=== PATIENT | male | born 1940 | race Caucasian/White ===

== ENCOUNTER → 2017-02-07 | Outpatient (CLI) | payer MEDICARE ==
[~2017-02-07] MED LIST: ATENOLOL25 M1 PO; LISINOPRIL20 MG PO; OMEPRAZOLE40 MG PO; SIMVASTATIN40 MG PO
--- NOTE | 2017-02-07 11:46 | RADIOLOGY REPORT PS360 ---
[id number] VIEWS HISTORY: LEFT SHOULDER PAIN ORDERING PHYSICIAN: JAYCE SHI PATIENT AGE: 77 years COMPARISON: None FINDINGS: No fracture or dislocation. No lytic or blastic change. There is normal mineralization. Osteoarthritic changes are present at the acromioclavicular joint with inferior osteophyte at the distal clavicle with subacromial stenosis which may result in impingement symptomatology upon the rotator cuff and may be better evaluated with MRI clinically warranted. Mild hypertrophic changes are present at the greater tuberosity and there are mild osteoarthritic changes of the glenohumeral joint. IMPRESSION: Osteoarthritis with subacromial stenosis
== END ==
LOC: RAD 11:12
DX: M25.512 Pain in left shoulder (principal)

== ENCOUNTER → 2017-05-21 | Outpatient (CLI) | payer MEDICARE ==
--- NOTE | 2017-05-22 10:23 | RADIOLOGY REPORT PS360 ---
MRI-UP EXT ANY JNT W/O-LT HISTORY: Left shoulder pain with limited range of motion and weakness, subacromial stenosis with osteoarthritis SHOULDER PAIN ORDERING PHYSICIAN: JAYCE SHI PATIENT AGE: 77 years COMPARISON: Radiograph of 02/07/2017 TECHNIQUE: Standard multiplanar multiecho sequences are performed without contrast. FINDINGS: Study is somewhat compromised by motion artifact. There is complete tear of the supraspinatus and infraspinatus tendons with loss of the subacromial space and retraction of the supraspinatus and infraspinatus muscles and tendons. There is mild superior location of the humeral head is subluxed superiorly within the glenoid. Acromioclavicular arthropathy is noted. Motion somewhat limits evaluation of the luisa. No definite labral tear apparent. The subscapularis and teres minor tendons are intact. There is a medium-sized shoulder joint effusion with fluid in the subscapular region and subcoracoid area. The bicipital tendon is in place with fluid in the bicipital tendon sheath. No obvious fracture IMPRESSION: 1. Complete tear of the supraspinatus and infraspinatus tendons with retraction and atrophy of the musculotendinous fibers with severe of acromial stenosis and superior location of the humeral head. 2. 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 3. Moderate-sized shoulder joint effusion with fluid in the subcutaneous scapular and subcoracoid region.
== END ==
LOC: RAD 14:30
DX: M25.512 Pain in left shoulder (principal)

== ENCOUNTER → 2017-08-29 | Outpatient (CLI) | payer MEDICARE ==
[2017-08-29 09:44] LABS: HEMOGLOBIN 15.2 g/dL (14.1-18.0); LYMPH % 26.7 % (10-50)
[2017-08-29 09:45] LABS: LYMPH # 1.8 K/mm3 (0.7-4.5)
[2017-08-29 10:56] LABS: BUN 24 mg/dL (7-18)
[2017-08-29 11:12] LABS: GFR (ESTIMATED) 73 ML/MIN (>60); PROSTATE-SPECIFIC AG SCREEEN 5.4 ng/mL (0.0-4.0)
[2017-08-30 08:49] LABS: Vitamin D, 25-Hydroxy 31.5 ng/mL (30.0-100.0)
== END ==
LOC: LAB 09:07
PROVIDERS: Family Medicine
DX: E78.5 Hyperlipidemia, unspecified (principal); Z00.00 Encounter for general adult medical examination without abnormal findings; R73.01 Impaired fasting glucose; R97.20 Elevated prostate specific antigen [PSA]; Z12.5 Encounter for screening for malignant neoplasm of prostate
CPT/HCPCS: G0103

== ENCOUNTER → 2017-10-04 | Outpatient (CLI) | payer MEDICARE ==
[2017-10-04 13:45] LABS: BUN 12 mg/dL (7-18)
[2017-10-04 13:53] LABS: GFR (ESTIMATED) 73 ML/MIN (>60)
== END ==
LOC: LAB 12:12
PROVIDERS: Internal Medicine Cardiovascular Disease
DX: I10 Essential (primary) hypertension (principal); R06.00 Dyspnea, unspecified; K21.9 Gastro-esophageal reflux disease without esophagitis; R42 Dizziness and giddiness; R55 Syncope and collapse; R00.1 Bradycardia, unspecified

== ENCOUNTER → 2017-10-19 | Outpatient (CLI) | payer MEDICARE ==
[2017-10-19 09:29] LABS: BUN 20 mg/dL (7-18)
[2017-10-19 09:31] LABS: GFR (ESTIMATED) 82 ML/MIN (>60)
== END ==
LOC: LAB 07:15
PROVIDERS: Internal Medicine Cardiovascular Disease
DX: I10 Essential (primary) hypertension (principal); R42 Dizziness and giddiness; R55 Syncope and collapse; I50.9 Heart failure, unspecified